=== PATIENT | male | born 1985 | race Caucasian/White ===

== ENCOUNTER 2022-02-20 05:35 | Day surgery (SDC) | payer MEDICAID ==
[2022-02-14 14:17] LABS: BASOPHILS % (AUTO) 0.4 % (0-1); EOSINOPHILS # (AUTO) 0.1 X10'3 (0-0.9); EOSINOPHILS % (AUTO) 0.7 % (0-6); LYMPHOCYTES # (AUTO) 2.2 X10'3 (1.1-4.8); LYMPHOCYTES % (AUTO) 26.8 % (21-51); MEAN CORPUSCULAR HEMOGLOBIN 28.3 PG (27.0-31.0); MEAN CORPUSCULAR HGB CONC 32.5 g/dL (33.0-36.5); MEAN CORPUSCULAR VOLUME 87.2 FL (78-98); MEAN PLATELET VOLUME 7.5 FL (7.4-10.4); MONOCYTES # (AUTO) 0.6 X10'3 (0-0.9); NEUTROPHILS # (AUTO) 5.4 X10'3 (1.8-7.7); NEUTROPHILS % (AUTO) 65.1 % (42-75); PRE OP HEMATOCRIT 50.3 % (42.0-52.0); PRE OP HEMOGLOBIN 16.4 g/dL (14.0-17.9); PRE OP PLATELET COUNT 315 X10'3 (140-440); RED BLOOD COUNT 5.78 X10'6 (4.70-6.10); RED CELL DISTRIBUTION WIDTH 14.4 % (11.5-14.5)
[2022-02-14 14:31] LABS: ALBUMIN 4.3 G/DL (3.4-5.0); ALBUMIN/GLOBULIN RATIO 1.2 (1.1-1.5); ALKALINE PHOSPHATASE 92 IU/L (46-116); BLOOD UREA NITROGEN 17 MG/DL (7-18); BUN/CREATININE RATIO 18.9 (5.4-32.0); CALCIUM 9.5 MG/DL (8.5-10.1); CHLORIDE 104 MMOL/L (99-107); PRE OP ALT 28 U/L (30-65); PRE OP ANION GAP 9 (8-16); PRE OP AST 16 U/L (10-37); PRE OP BILIRUB, TOTAL 0.8 MG/DL (0.0-1.0); PRE OP GLUCOSE 86 MG/DL (70-104); PRE OP POTASSIUM 3.9 MMOL/L (3.4-5.1); PRE OP SODIUM 140 MMOL/L (135-145); TOTAL CARBON DIOXIDE 27.4 MMOL/L (24-32); TOTAL PROTEIN 7.8 G/DL (6.4-8.2); eGFR > 90 ML/MIN
[2022-02-20] VITALS (19 sets, daily range): BP systolic 109–131; BP diastolic 70–90
[~2022-02-20] VITALS: Ht 182.9 cm; Wt 70.0 kg
[~2022-02-20 05:35] MED LIST: NO HOME MEDS; ceFAZolin inj. 2,000 MG in dextrose 5%-water 100 ML IV ONE; famotidine 20mg tablet PO ONE; ringers solution, lacted 1,000 ML IV SCH
[2022-02-20] MEDS ORDERED: BUPIVAcaine/PF 2.5 mg/ml (0.25%) 30ml vial ONE (06:37)
[2022-02-20] MEDS ORDERED: LIDOcaine 1% 30ml preserv. free vial ONE (06:37)
[2022-02-20] MEDS ORDERED: ondansetron/PF 4mg/2ml inj ONE (07:22)
[2022-02-20] MEDS ORDERED: sevoflurane 250ml liquid IH ONE (07:22)
[2022-02-20] MEDS ORDERED: ondansetron/PF 4mg/2ml inj IV PRN (07:30)
[2022-02-20] MEDS ORDERED: ringers solution, lacted 1,000 ML IV SCH (07:30)
[2022-02-20] MEDS ORDERED: morphine 2 MG/ML inj. syringe IV PRN (07:30)
[2022-02-20] MEDS ORDERED: morphine 4 MG/ML inj SYRINge IV PRN (07:30)
[2022-02-20] MEDS ORDERED: proCHLORperazine 10 MG/2 ml inj IV PRN (07:30)
[2022-02-20] MEDS ORDERED: meperidine/PF 25mg/ml syringe IV PRN ×3 (07:30)
[2022-02-20] MEDS ORDERED: midazolam 1 mg/ML 2ml injection ONE (07:33)
[2022-02-20] MEDS ORDERED: fentaNYL /PF 50mcg/ml 5ml ampule ONE (07:33)
[2022-02-20] MEDS ORDERED: propofol inj 20 ML IV ONE (07:45)
[2022-02-20] MEDS ORDERED: dexamethasone sod phosphate 4mg/ml inj. ONE (07:45)
[2022-02-20] MEDS ORDERED: rocuronium 10mg/ml inj IV ONE (07:45)
[2022-02-20] MEDS ORDERED: LIDOcaine 1%/PF 5ML 10 MG/ML VIAL ONE (07:45)
[2022-02-20] MEDS ORDERED: glycopyrrolate 0.2mg/ml inj ONE (08:42)
[2022-02-20] MEDS ORDERED: neostigmine methylsulfate 1 MG/ML 10ml vial ONE (08:42)
[2022-02-20] MEDS ORDERED: HYDROcodone/acetaminophen 5mg/325mg tablet PO PRN (09:00)
--- NOTE | 2022-02-20 09:02 | NUR ---
FROM OR ON GURNEY WITH DR. MÉNDEZ. VSS, IV PATENT. ORAL AIRWAY IN PLACE ON ARRIVAL. THREE BANDAIDS TO LAP SITES. CDI. SKIN WARM.
--- NOTE | 2022-02-20 09:32 | NUR ---
ORAL AIRWAY OUT. DOING VERY WELL. TOLERATING FLUIDS. NO PAIN. DRESSING CDI.
--- NOTE | 2022-02-20 09:53 | NUR ---
bP 120/92. dR. Agee NOTIFIED, DOESNT WANT TO TREAT AT THIS TIME.
--- NOTE | 2022-02-20 10:52 | NUR ---
DOING VERY WELL. TOLERATING WATER. NO URGE TO VOID YET.
[2022-02-20] MEDS ORDERED: HYDROcodone/acetaminophen 7.5MG/325MG per 15ml UD CUP PO ONE (10:55)
--- NOTE | 2022-02-20 12:32 | NUR ---
GOT UP AND AMBULATED. VOIDED IN BR. BLADDER SCANNED FOR 54 CC'S AFTER VOID. PAIN IS BETTER AFTER LORTAB. DRESSED. IV OUT. DC TO HOME WITH FRIENDS DRIVING. DC INSTRUCTIONS GIVEN, STATES UNDERSTANDS. ALL QUESTIONS ANSWERED. STATES UNDERSTANDS.
== END 2022-02-20 12:32 | disposition home or self-care (01) ==
LOC: PAS 05:35
PROVIDERS: ATTEND Surgery
DX: K40.90 Unilateral inguinal hernia, without obstruction or gangrene, not specified as recurrent (principal); K42.9 Umbilical hernia without obstruction or gangrene; F17.210 Nicotine dependence, cigarettes, uncomplicated; F12.90 Cannabis use, unspecified, uncomplicated; Z86.14 Personal history of Methicillin resistant Staphylococcus aureus infection; Z79.899 Other long term (current) drug therapy; Z82.3 Family history of stroke; Z82.49 Family history of ischemic heart disease and other diseases of the circulatory system
CPT/HCPCS: 36415; 49585; 49650; 80053; 82948; 85025; C1781; J0690; J1100; J2250; J2405; J2704; J2710; J3010; J3490; J7030; J7060; J7120; S2900; Z7506; Z7508; Z7512; A4215; A4618